=== PATIENT | female | born 1990 | race Caucasian/White ===

== ENCOUNTER 2020-03-27 08:52 | Day surgery (SDC) | payer BC ==
--- NOTE | 2020-03-27 08:52 | P.HPOB ---
History of Present Illness H&P Date: 03/27/20 Chief Complaint: Incomplete , vaginal bleeding This patient is a pleasant 29 female with known 9wk missed who began bleeding heavy this morning. Exam shows large blood but no tissue. Patient now presents for emergent suction D&C for treatment. Review of Systems Genitourinary: Reports Menstruation: Reports as per HPI Past Medical History Past Medical History: No Reported History History of Any Multi-Drug Resistant Organisms: None Reported Past Surgical History: No Surgical Hx Reported Past Anesthesia/Blood Transfusion Reactions: No Reported Reaction Past Psychological History: Bipolar Smoking Status: Former smoker Past Alcohol Use History: None Reported Past Drug Use History: None Reported Exam - OBG Physical Exam Abdomen: bowel sounds normal, no diffuse tenderness, no bruit present, no guarding noted, no hepatomegaly, no splenomegaly, no mass Vagina: normal moisture (Profuse vaginal bleeding), no discharge Cervix: no lesion, no discharge Uterus: enlarged (9 weeks size) Results Ultrasound 2 days ago demonstrated 9wk non-viable Assessment and Plan Assessment: This is a pleasant 29 yr female 9 weeks gestation with incomplete and vaginal bleeding. Plan is suction D&C for treatment. Patient understands the surgery and risks: infection, bleeding, possible uterine perforation. All of her questions were answered and a written consent obtained. (1) Incomplete Status: Acute Code(s): O03.4 - INCOMPLETE SPONTANEOUS WITHOUT COMPL ICATION SNOMED Code(s): 416627420
[2020-03-27] MEDS ORDERED: LACTATED RINGERS 1,000 ML IV ONE (09:14)
[2020-03-27] MEDS ORDERED: DEXAMETHASONE SOD PHOSPHATE 10 MG/ML 1 ML VIAL IV ONE (09:32)
[2020-03-27] MEDS ORDERED: ONDANSETRON 4 MG/2 ML VIAL IVP ONE (09:32)
[2020-03-27] MEDS ORDERED: METOCLOPRAMIDE 5 MG/ML 2 ML VIAL IVP ONE (09:33)
[2020-03-27] MEDS ORDERED: FAMOTIDINE 20 MG/2 ML VIAL IVP ONE (09:33)
[2020-03-27 09:34] LABS: Basophils # (A) 0.1 k/uL (0-0.2); Basophils % (A) 1 %; Eosinophils # (A) 0.3 k/uL (0-0.7); Eosinophils % (A) 2 %; HGB 13.2 gm/dL (11.4-16.0); Lymphocytes % (A) 19 %; MCH 32.2 pg (25.0-35.0); MCHC 32.9 g/dL (31.0-37.0); MCV 97.7 fL (80.0-100.0); Mean Platelet Volume 8.4; Monocytes # (A) 0.9 k/uL (0-1.0); Monocytes % (A) 5 %; Neutrophils # (A) 11.5 k/uL (1.3-7.7); Neutrophils % (A) 72 %; Platelet Count 395 k/uL (150-450); RDW 12.5 % (11.5-15.5)
[2020-03-27] MEDS ORDERED: MIDAZOLAM 2 MG/2 ML VIAL IVP ONE (09:34)
[2020-03-27] MEDS ORDERED: HYDROmorphone (PF) 1 MG/ML ONE (09:46)
[2020-03-27] MEDS ORDERED: KETOROLAC 30 MG/ML 1 ML VIAL ONE (09:46)
[2020-03-27] MEDS ORDERED: PROPOFOL 10 MG/ML 20 ML VIAL IV ONE (09:46)
[2020-03-27] MEDS ORDERED: fentaNYL (PF) 50 MCG/ML 2 ML AMP ONE (09:46)
[2020-03-27] MEDS ORDERED: LIDOCAINE 1% INJ 10MG/ML (20 ML MDV) ONE (09:46)
[2020-03-27] MEDS ORDERED: SUCCINYLCHOLINE CHLORIDE 100 MG/5 ML SYR IV ONE (09:46)
[2020-03-27 10:15] VITALS: RESP 16; TEMP 96.8
--- NOTE | 2020-03-27 10:16 | P.OP ---
Date of Procedure: 03/27/20 Preoperative Diagnosis: Complete , 9 weeks Postoperative Diagnosis: Same Procedure(s) Performed: Suction D&C Anesthesia: BONNIE Surgeon: Ismael Magdaleno Estimated Blood Loss (ml): 50 Urine output (ml): 25 Pathology: other (Uterine contents) Condition: stable Disposition: PACU Indications for Procedure: Please see dictated H&P for intimate details of this patient's admission. Brief summary is a pleasant 29-year-old 1 para 0 female estimated gestational age 9 weeks with a known missed began bleeding heavier early this morning. Patient did pass a large blood clot in my office however it appeared tissue still remained therefore presents for suction D&C due to persistent vaginal bleeding and incomplete . Patient understands this surgery and risks and risks of infection, bleeding, possible uterine perforation. All the patient's questions are answered and a written consent is obtained. Operative Findings: This patient had a small amount of retained products of conception but otherwise appears to have passed most of the tissue. Description of Procedure: This patient is taken the operating room where she is laid in the supine position. She subsequent undergoes general endotracheal anesthesia without incident. With adequate level of anesthesia she's placed in dorsal lithotomy position. She has a vaginal perineal prep and drape. Examination under anesthe dereck shows a mid position uterus slightly enlarged. Weighted speculum was placed in the posterior vagina. The bladder is drained for 25 mL of clear urine. The anterior lip of the cervix is then grasped with an Allis clamp. The cervix is already dilated and I continued to dilated to allow a 9 curved suction curette easily and the uterine cavity. Suction is applied and a small amount of tissue is removed. There is minimal bleeding at this time. Multiple passes are made until no further tissue was noted. Gentle 4 quadrant curettage is done again no further tissue was noted. With this done the procedure is ended. The Allis clamp and weighted speculum were removed. All counts are correct 3. There are no complications. Patient is awakened from anesthesia and taken recovery room in satisfactory condition.
[2020-03-27 12:21] VITALS: BP 123/70; PULSE 86
== END 2020-03-27 13:17 | disposition home or self-care (01) ==
LOC: OR 08:52
PROVIDERS: ATTEND Obstetrics & Gynecology
DX: O03.4 Incomplete spontaneous abortion without complication (principal); J45.909 Unspecified asthma, uncomplicated; F31.9 Bipolar disorder, unspecified; E66.01 Morbid (severe) obesity due to excess calories; Z68.41 Body mass index [BMI] 40.0-44.9, adult; Z87.891 Personal history of nicotine dependence
CPT/HCPCS: 86900; 86901; 88305; 85025; 86850; 59812; J2250; J1100; J2765; J2405; J2001; J3010; J1885; J1170; J0330; J2704

== ENCOUNTER 2024-03-13 17:31 | Emergency (ER) | payer BC, OTHER ==
--- NOTE | 2024-03-13 18:32 | ED ---
ENT HPI - General Chief complaint: Dental/Oral Stated complaint: Oral Pain Time Seen by Provider: 03/13/24 18:20 Source: patient, RN notes reviewed Mode of arrival: ambulatory Limitations: no limitations - History of Present Illness Initial comments: This is a 33-year-old female who presents to the emergency department for dental pain and swelling. States that yesterday she started to develop pain and swelling along the right side of her face. She went to the emergency department in [place], [place] and was given a shot of pain medication and started on clindamycin. States that symptoms feel essentially the same today. She followed up with her dentist, who advised she come to the emergency department for a CT scan for further evaluation of possible infection given the persistence of her symptoms. She was told that she has an impacted wisdom tooth, which is likely the source of infection. Denies any chest pain or shortness of breath. States that swallowing is painful. Denies any fevers/chills. - Related Data Home Medications Medication Instructions Recorded Confirmed Inhaler, Assist Devices 1 each MISCELLANE DIRECTED 03/27/20 03/27/20 [Aerochamber Mv] Tjz-Wosl-Altsk Acid 1 cap PO DAILY 03/27/20 03/27/20 [-U Capsule (formulary)] Previous Rx's Medication Instructions Recorded Ibuprofen [Motrin] 600 mg PO Q6HR PRN #40 tab 03/27/20 Ketorolac [Toradol] 10 mg PO Q6HR PRN #15 tab 03/13/24 Allergies Allergy/AdvReac Type Severity Reaction Status Date / Time No Known Allergies Allergy Verified 03/13/24 18:17 Review of Systems ROS Statement: Those systems with pertinent positive or pertinent negative responses have been documented in the HPI. ROS Other: All systems not noted in ROS Statement are negative. Past Medical History Past Medical History: No Reported History History of Any Multi-Drug Resistant Organisms: None Reported Past Surgical History: No Surgical Hx Reported Additional Past Surgical History / Comment(s): d and c 2020 Past Anesthesia/Blood Transfusion Reactions: No Reported Reaction Past Psychological History: Bipolar Past Alcohol Use History: None Reported Past Drug Use History: None Reported General Exam Limitations: no limitations General appearance: alert, in no apparent distress Head exam: Present: atraumatic, normocephalic, normal inspection ENT exam: Present: other (Swelling and tenderness along the right lower jawline. No palpable abscess. There is no elevation of the tongue or swelling to the floor of the mouth.) Respiratory exam: Present: normal lung sounds bilaterally. Absent: respiratory distress, wheezes, rales, rhonchi, stridor Cardiovascular Exam: Present: regular rate, normal rhythm, normal heart sounds. Absent: systolic murmur, diastolic murmur, rubs, gallop, clicks Neurological exam: Present: alert, oriented X3, CN II-XII intact Psychiatric exam: Present: normal affect, normal mood Skin exam: Present: warm, dry, intact, normal color. Absent: rash Course Vital Signs 03/13/24 03/13/24 18:13 21:29 Temperature 98.6 F 98.2 F Pulse Rate 88 80 Respiratory 18 20 Rate Blood Pressure 147/96 132/78 O2 Sat by Pulse 100 100 Oximetry Medical Decision Making - Medical Decision Making This is a 33 year old female who presents to the emergency department for dental pain. Was pt. sent in by a medical professional or institution? @ -Her dentist Did you speak to anyone other than the patient for history? @ -No Did you review nursing and triage notes? @ -Yes, and I agree, it is accurate with regards to the patient's symptoms. Were old charts reviewed? @ -No Differential Diagnosis? @ -Differential Dental Pain: Dental abscess, chipped tooth, dental carries, yony's angina, trigeminal neuralgia, this is not meant to be an all-inclusive list. EKG interpreted by me (3pts min.)? @ -Not obtained X-rays interpreted by me (1pt min.)? @ -Not obtained CT interpreted by me (1pt min.)? @ -CT scan of the soft tissue neck obtained. My interpretation identifies no evidence of abscess formation. U/S interpreted by me (1pt. min.)? @ -Not obtained What testing was considered but not performed? (CT, X-rays, U/S, labs)? Why? @ -None What meds were considered but not given? Why? @ -None Did you discuss the management of the patient with other professionals? @ -No Did you reconcile home meds? @ -No Was smoking cessation discussed for >3mins.? @ -No Was critical care preformed (if so, how long)? @ -No Were there social determinants of health that impacted care today? How? (Homelessness, low income, unemployed, alcoholism, drug addiction, transportation, low edu. Level, literacy, decrease access to med. care, senior living, rehab)? @ -No Was there de-escalation of care discussed even if they declined? (Discuss DNR or withdrawal of care, Hospice)? @ -No What co-morbidities impacted this encounter? (DM, HTN, Smoking, COPD, CAD, Cancer, CVA, Hep., AIDS, mental health diagnosis, sleep apnea, morbid obesity)? @ -None Was patient admitted / discharged? @ -Discharged. Lab work demonstrates mild leukocytosis and a mild elevation in inflammatory markers. CT scan of the soft tissue neck was obtained, which also included the bottom portion of her face. This revealed mild enlargement of the right submandibular gland without submandibular gland mass or duct calcification. She also has no elevation of the tongue or swelling of the floor of the mouth on physical examination to suggest Yony's angina. Symptoms well-controlled with Toradol. Advised she continue on clindamycin as prescribed and follow-up with her dentist. Prescription for Toradol provided for pain control. Undiagnosed new problem with uncertain prognosis? @ -None Drug Therapy requiring intensive monitoring for toxicity (Heparin, Nitro, Insulin, Cardizem)? @ -None Were any procedures done? @ -None Diagnosis/symptom? @ -Dental infection Acute, or Chronic, or Acute on Chronic? @ -Acute Uncomplicated (without systemic symptoms) or Complicated (systemic symptoms)? @ -Uncomplicated Side effects of treatment? @ -None Exacerbation, Progression, or Severe Exacerbation] @ -Not applicable Poses a threat to life or bodily function? @ -No Return precautions reviewed in depth, the patient is instructed to return to the emergency department with any new, worsening, or concerning symptoms. Patient verbalized understanding. This case was discussed in detail with the attending ED physician, Dr. Kearns. Presentation, findings, and treatment plan discussed in detail as well. - Lab Data Result diagrams: 03/13/24 19:28 03/13/24: Lab Results 03/13/24 03/13/24 03/13/24 Range/Units 19:28 19:28 19: WBC 12.9 H (3.8-10.6) k/uL RBC 4.48 (3.80-5.40) m/uL Hgb 14.3 (11.4-16.0) gm/dL Hct 44.7 (34.0-46.0) % MCV 99.6 (80.0-100.0) fL MCH 32.0 (25.0-35.0) pg MCHC 32.1 (31.0-37.0) g/dL RDW 13.7 (11.5-15.5) % Plt Count 382 (150-450) k/uL MPV 8.9 Neutrophils % 69 % Lymphocytes % 16 % Monocytes % 7 % Eosinophils % 5 % Basophils % 1 % Neutrophils # 8.9 H (1.3-7.7) k/uL Lymphocytes # 2.0 (1.0-4.8) k/uL Monocytes # 0.9 (0-1.0) k/uL Eosinophils # 0.7 (0-0.7) k/uL Basophils # 0.1 (0-0.2) k/uL Sodium 137 (137-145) mmol/L Potassium 4.3 (3.5-5.1) mmol/L Chloride 107 (98-107) mmol/L Carbon Dioxide 26 (22-30) mmol/L Anion Gap 4 mmol/L BUN 12 (7-17) mg/dL Creatinine 0.55 (0.52-1.04) mg/dL Est GFR (CKD-EPI)AfAm >90 (>60 ml/min/1.73 sqM) Est GFR (CKD-EPI)NonAf >90 (>60 ml/min/1.73 sqM) Glucose 79 (74-99) mg/dL Plasma Lactic Acid Agustín 1.0 (0.7-2.0) mmol/L Calcium 9.3 (8.4-10.2) mg/dL Total Bilirubin 1.0 (0.2-1.3) mg/dL AST 68 H (14-36) U/L ALT 68 H (4-34) U/L Alkaline Phosphatase 124 (38-126) U/L C-Reactive Protein 2.6 H (<1.0) mg/dL Total Protein 7.1 (6.3-8.2) g/dL Albumin 4.0 (3.5-5.0) g/dL - Radiology Data Radiology results: report reviewed, image reviewed Disposition Clinical Impression: Dental infection Disposition: HOME SELF-CARE Instructions (If sedation given, give patient instructions): Dental Abscess (ED) Additional Instructions: Return to the emergency department with any new, worsening, or concerning symptoms. Take the Toradol with Tylenol as needed for pain relief. If you choose to take the Toradol, do not take any other anti-inflammatories such as ibuprofen, take one or the other. Continue to take the clindamycin as prescribed. Follow-up with your dentist. Prescriptions: Ketorolac [Toradol] 10 mg PO Q6HR PRN #15 tab PRN Reason: Pain Is patient prescribed a controlled substance at d/c from ED?: No Referrals: Hansel Rosas MD [Primary Care Provider] - 1-2 days Time of Disposition: 21:16
[2024-03-13] MEDS: KETOROLAC 15 MG/ML 1 ML VIAL IVP STA (19:22)
[2024-03-13] MEDS: SODIUM CHLORIDE 0.9% 1,000 ML IV STA (19:23)
[2024-03-13 20:13] LABS: Basophils # (A) 0.1 k/uL (0-0.2); Basophils % (A) 1 %; Eosinophils # (A) 0.7 k/uL (0-0.7); Eosinophils % (A) 5 %; HCT 44.7 % (34.0-46.0); HGB 14.3 gm/dL (11.4-16.0); Lymphocytes % (A) 16 %; MCHC 32.1 g/dL (31.0-37.0); MCV 99.6 fL (80.0-100.0); Mean Platelet Volume 8.9; Monocytes # (A) 0.9 k/uL (0-1.0); Monocytes % (A) 7 %; Neutrophils # (A) 8.9 k/uL (1.3-7.7); Neutrophils % (A) 69 %; Platelet Count 382 k/uL (150-450); RBC 4.48 m/uL (3.80-5.40); RDW 13.7 % (11.5-15.5); WBC 12.9 k/uL (3.8-10.6)
[2024-03-13 20:25] LABS: ALT 68 U/L (4-34); African American GFR (CKD) >90 (>60 ml/min/1.73 sqM); Anion Gap 4 mmol/L; Blood Urea Nitrogen 12 mg/dL (7-17); Calcium 9.3 mg/dL (8.4-10.2); Carbon Dioxide 26 mmol/L (22-30); Chloride 107 mmol/L (98-107); Glucose 79 mg/dL (74-99); Non-African American GFR(CKD) >90 (>60 ml/min/1.73 sqM); Sodium 137 mmol/L (137-145); Total Protein 7.1 g/dL (6.3-8.2)
[2024-03-13 20:41] LABS: AST 68 U/L (14-36); Potassium 4.3 mmol/L (3.5-5.1)
[2024-03-13 20:42] LABS: Alkaline Phosphatase 124 U/L (38-126)
--- NOTE | 2024-03-13 20:57 | CT ---
EXAMINATION TYPE: CT soft tissue neck w con DATE OF EXAM: 03/13/2024 8:42 PM COMPARISON: None HISTORY: left sidefacial swelling CT DLP: 275.7 mGycm Automated exposure control for dose reduction was used. CONTRAST: CT scan of the neck is performed following with IV Contrast, patient injected with 100 ml mL of Isovu e 300. Axial images are obtained, coronal and sagittal reformatted images are reviewed. FINDINGS: FINDINGS: There are no supraclavicular lymph nodes. There is no thyroid mass or gross enlargement. The larynx including the cricoid, arytenoid and thyroid cartilages as well as the vocal cords are nor mal and symmetric. The tongue base, epiglottis, aryepiglottic folds, piriform sinuses and vallecula are normal and symme tric. The right submandibular gland is enlarged relative to the left submandibular gland but there is no ma ss or submandibular duct calcification. The parotid glands are symmetric without focal mass. There is no pharyngeal or parapharyngeal soft tissue mass or enhancement The great vessels of the neck are normal. There are no enlarged lymph nodes within the neck. There is no soft tissue swelling, inflammation or abscess. IMPRESSION: 1. No lymphadenopathy within the neck. 2. Mild enlargement of the right submandibular gland without submandibular gland mass or duct calcifi cation.
[2024-03-13 21:02] LABS: C Reactive Protein 2.6 mg/dL (<1.0)
[2024-03-13] MEDS: ACET/COD 300 MG/30 MG STARTER PACK 6 TAB BTL PO STA (21:25)
[2024-03-13 21:32] VITALS: BP 132/78; PULSE 80; RESP 20; TEMP 98.2
[2024-03-14 04:20] LABS: Erythrocyte Sedimentation Rate 59 mm/Hr (0-20)
== END 2024-03-13 21:32 | disposition home or self-care (01) ==
LOC: EC 17:31
DX: K04.7 Periapical abscess without sinus (principal)
CPT/HCPCS: 36415; 80053; 85652; 83605; 85025; 86140; 70491; 99283; 96374; 96361; J1885; Q9967